=== PATIENT | female | born 2000 | race Caucasian/White ===

== ENCOUNTER 2023-01-11 11:02 | Outpatient (REF) | payer OTHER, SELFPAY ==
[2023-01-11 11:24] LABS: MANUAL DIFF FLAG NO
[2023-01-11 11:55] LABS: Appearance Urine Clear; Color Urine Yellow; Glucose Urine UA Negative (Negative); Leukocyte Esterase Urine Trace (Negative); Nitrite Urine Negative (Negative); PH 6.5 (5.0-9.0); UMIC TRIGGER UACC YES; Urine Blood Negative (Negative); Urine Ketones Negative (Negative); Urine Protein Negative (Neg-Trace)
[2023-01-11 11:55] LABS: Basophils Absolute Auto 0.1 X10*3/uL (0.0-0.2); Basophils Percent Auto 0.7 % (0-2); Eosinophils Absolute Auto 0.4 X10*3/uL (0.0-0.4); Eosinophils Percent Auto 4.5 % (0-4); Hematocrit 38.6 % (37.0-47.0); Hemoglobin 12.4 g/dl (12.0-16.0); Imm Gran Abs Auto 0.08 X10*3/uL (0.00-0.03); Imm Gran Pct Auto 0.9 % (0.0-0.4); Lymphocytes Absolute Auto 2.8 X10*3/uL (1.2-4.9); Lymphocytes Percent Auto 32.4 % (20-40); Mean Corpuscular HGB Conc 32.1 g/dl (31.0-35.0); Mean Corpuscular Hemoglobin 26.7 pg (27.0-33.0); Mean Platelet Volume 11.1 fL (9.4-12.3); Monocytes Absolute Auto 0.5 X10*3/uL (0.1-1.2); Monocytes Percent Auto 5.4 % (2-11); Neutrophils Absolute Auto 4.9 x10*3/uL (2.0-8.3); Neutrophils Percent Auto 56.1 % (45-73); Platelet Count 357 X10*3/uL (160-400); Red Blood Count 4.65 X10*6/uL (4.20-5.50); Red Cell Distribution Width 14.5 % (11.0-16.0); White Blood Count 8.7 X10*3/uL (4.8-10.8)
[2023-01-11 12:10] LABS: Alanine Aminotransferase 72 U/L (0-31); Albumin Level 4.1 g/dL (3.5-5.0); Alkaline Phosphatase 113 U/L (39-117); Anion Gap 14 (12-20); Aspartate Amino Transferase 50 U/L (5-31); Bilirubin Total 0.6 mg/dL (0.0-1.0); Blood Urea Nitrogen 7 mg/dL (9-16); Carbon Dioxide 25 mmol/L (22-29); Chloride 106 mmol/L (96-108); Cholesterol 165 mg/dL; Estimated Glomerular Filt Rate > 60; Glucose Fasting 81 mg/dL (60-99); HDL Cholesterol 39 mg/dL; LDL Cholesterol Calculated 97 mg/dl; Potassium 4.3 mmol/L (3.3-5.1); Sodium 141 mmol/L (135-145); Total Protein 7.6 g/dL (6.5-8.0); Triglycerides 147 mg/dL
[2023-01-11 12:13] LABS: Bacteria Urine 2+ (None Seen); Hyaline Casts Urine 0-2 /LPF (0-2); UACC Culture Trigger YES
[2023-01-11 12:31] LABS: TSH reflex Free T4 0.87 uIU/mL (0.32-4.0)
== END 2023-01-11 11:03 | disposition home or self-care (01) ==
LOC: HO.LAB 11:02
PROVIDERS: PCP Hospitalist; Visit Provider Nurse Practitioner Family
DX: F41.9 Anxiety disorder, unspecified (principal); F32.A Depression, unspecified; Z00.00 Encounter for general adult medical examination without abnormal findings
CPT/HCPCS: 36415; 80053; 80061; 81001; 84443; 85025; 87086

== ENCOUNTER 2023-06-04 09:22 | Outpatient (AMB) | payer OTHER, SELFPAY ==
--- NOTE | 2023-06-04 09:36 | AM.OFFVISNUR ---
Intake Intake Visit Reasons: TDAP Intake Note: Patient came in for a TDAP vaccine. Installment Loan Collector Required: No Accompanied by: Friend Allergies No Known Allergies Allergy (Verified 06/04/23 09:38) Do you need a note to return to daycare/school/sports/work: No Immunizations Boostrix Tdap 2.5 Lf unit-8 mcg-5 Lf/0.5 mL intramuscular syringe Performing Provider: Cheryle Nicolas CNP Performing Location: [facility] [place] [facility] Administered by: Kailey Wilder CMA on 06/04/23 09:36 Dose Route Admin Location Dispensed Lot Number Expiration Date NDC Commissioning Engineer 0.5 mL IM Left Deltoid 0.5 mL [id number] 07/11/25 42814-436-00 [facility] VIS Given Date VIS Provided VIS Publication Date 06/04/23 Single Vaccine 21 Eligibility Eligibility Date Funding Source Not [facility] Eligible 06/04/23 Private Coding Assessment & Plan Assessment & Plan Orders: Orders TDaP Immunization Today Z23 - Encounter for immunization
== END 2023-06-04 09:38 | disposition home or self-care (01) ==
PROVIDERS: PCP Hospitalist; Visit Provider Hospitalist
DX: Z23 Encounter for immunization (principal)
CPT/HCPCS: 90471; 90715

== ENCOUNTER 2023-12-10 13:07 | Outpatient (AMB) | payer OTHER, SELFPAY ==
--- NOTE | 2023-12-10 13:14 | MHC.PC.OV ---
Vital Signs 12/10/23 13:15 Height 5 ft 2 in Weight 195 lb BMI 35.7 BP 122/70 Blood Pressure Location Rt brachial Position Sitting Respiration 13 Pulse 98 Pulse Source Pulse Oximeter Temp 97.3 F Temp Source Temporal Artery Scan Pulse Oximetry (%) 99 Oxygen Delivery Method Room Air Intake Visit Reasons: Trans. from VS-Physical Exam Paper Cone Maker Required: No Accompanied by: Self / Same As Patient Allergies No Known Allergies Allergy (Verified 12/10/23 13:26) Medication List - Last Reconciled 12/10/23 by Cheryle Nicolas CNP lorazepam 0.5 mg PO BID PRN sertraline 50 mg PO DAILY sertraline 200 mg PO DAILY Tobacco use date assessed: 12/10/23 Dental Screening Dental Screen Date: 12/10/23 Did you have a dental visit in the last 12 months?: Yes Did you have a dental problem in the last 6 months where you did not have access to dental care?: No Was dental information given to patient?: Patient has dentist HPI HPI Comments History of Present Illness Details 23-year-old female presents for an extended physical exam She has history of anxiety and depression. She has not followed up with her PCP in over a year She is on lorazepam 0.5mg twice daily and sertraline 250mg daily. She admits to taking her medications as prescribed without adverse reactions She reports controlled anxiety and depression on current regimen She notes that she is followed by a psych provider who manages her psychotropic medications. She is seen at least twice a year She reports intermittent sharp pain underneath her left breast for the past 2 years. The pain usually lasts a few seconds. No associated symptoms, including headache, dizziness, difficulty breathing, nausea, heartburn, neck, jaw, or back pain. She experienced similar chest pain that lasted a few seconds while driving to this appointment. She denies acute symptoms at this time. She states that she was evaluated at the urgent care 2 years ago and lab work including D-dimer ruled out cardiac cause; EKG was not done. She does not make healthy dietary choices. However, she walks at least 30 minutes daily She notes that her last pap smear test was in 2021 with [facility]: normal She is up-to-date on the flu vaccine She notes that she has not been sexually active in the past 2 years She does not smoke cigarette. She drinks alcohol occasionally. No recreational drug use [facility] Medical History (Updated 12/10/23 @ 14:00 by Cheryle Nicolas CNP) No family history of mental disorder Headache Depression Anxiety Sinusitis Surgical History (Updated 12/06/22 @ 11:25 by Kailey Wilder GENERATION TECHNICIAN) No pertinent past surgical history Family History (Updated 12/10/23 @ 13:23 by KARINA Verdin) Mother Breast cancer Social History (Updated 12/06/22 @ 11:29 by Kailey Wilder CMA) Household Members: None Both parents involved: Yes Caregiver staying overnight: No Housing: Apartment Are you a primary childcare worker to a significant other at home: No Do you presently have visiting nurse or other home services: No 75 years or older and lives alone: No Alcohol intake: current Alcohol intake frequency: a few times a week Alcohol type: wine and other Patient Tobacco Use Status: Never used Tobacco e-Cigarette/Vaping Use: Never Used service: No Current occupational status: employed 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 1. Little interest or pleasure in doing things: not at all 2. Feeling down, depressed, or hopeless: not at all 3. Trouble falling or staying asleep, or sleeping too much: not at all 4. Feeling tired or having little energy: several days 5. Poor appetite or overeating: nearly every day 6. Feeling bad about yourself - or that you are a failure or have let yourself or your family down: not at all 7. Trouble concentrating on things, such as reading the newspaper or watching television: not at all 8. Moving or speaking so slowly that other people could have noticed. Or the opposite - being so fidgety or restless that you have been moving around a lot more than usual: several days 9. Thoughts that you would be better off or of hurting yourself in some way: not at all Total score: 5 Depression Screening Interpretation: Negative Depression Screening Done: Yes 55211 - PHQ-9 Billing: Yes Source: Developed by Drs. Miguel A Amador, Lucía Ziegler, Serjio Liu and colleagues, with an educational jose j from [employer] Thrive Questionnaire Date Thrive assessed: 12/10/23 I am a: Patient What is your living situation today?: I have a steady place to live Within the past 12 months, did the food you bought not last and you didn't have the money to get more?: Never true Within the past 12 months, did you worry whether your food would run out before you got money to buy more?: Never true Do you have trouble paying for medicines?: No Do you have trouble getting transportation to medical appointments?: No Do you have trouble paying your heating and electricity bill?: No Do you have trouble taking care of your child, family member or friend?: No Do you have trouble with day-to-day activities such as bathing, preparing meals, shopping, managing finances, etc.?: No Are you currently unemployed and looking for a job?: No Are you interested in more education?: Yes Please select the resources that you would like help with: None Currently or been in a relationship where the following occur: no concerns reported THRIVE Score: 0 AUDIT C Alcohol Use Questionnaire (AUDIT-C) 1. How often do you have a drink containing alcohol?: 2-3 times a week 2. How many drinks containing alcohol do you have on a typical day when you are drinking?: 1 or 2 3. How often do you have six or more drinks on one occasion?: Never Total Score: 3 OSMEL-7 AMB Questionnaire OSMEL-7 Date OSMEL - 7 assessed: 12/10/23 Feeling nervous, anxious, or on edge: 1 = Several days Not being able to stop or control worryin = More than half the days Worrying too much about different things: 2 = More than half the days Trouble relaxin = More than half the days Being so restless that it is hard to sit still: 3 = Nearly every day Becoming easily annoyed or irritable: 2 = More than half the days Feeling afraid as if something awful might happen: 2 = More than half the days Total OSMEL-7 score (0-4 normal; 5-9 mild; 10-14 moderate; 15-21 severe): 14 Source: Developed by Drs. Miguel A Amador, Serjio Bennett and colleagues, with an educational jose j from [employer]. OSMEL-7 Assessment Billing OSMEL-7 Assessment Tool: OSMEL-7 Assessment 43647 Review of Systems Const Details: Denies chills, Denies fatigue, Denies fever(s), Denies headache(s) and Denies weakness HEENT Denies change in vision, Denies dizziness, Denies headache(s), Denies hearing loss, Denies nasal congestion, Denies sinus pain, Denies sinus pressure and Denies sore throat Card Denies chest pain, Denies lightheadedness, Denies dyspnea and Denies other (palpitations) Resp Denies cough, Denies dyspnea and Denies wheezing GI Denies abdominal pain, Denies melena, Denies hematochezia, Denies change in bowel habits, Denies dyspepsia and Denies nausea Denies hematuria and Denies dysuria Musc Denies abnormal gait, Denies myalgias, Denies arthralgias, Denies numbness and Denies tingling Skin/Breast Denies rash, Denies unusual bruising and Denies wounds Neuro Denies abnormal gait, Denies dizziness, Denies headache(s), Denies memory loss, Denies numbness, Denies Sensory deficit (Neuro), Denies tingling and Denies weakness Psych Denies anxiety, Denies depression and Denies memory loss Endo Denies cold intolerance, Denies fatigue, Denies heat intolerance, Denies polydipsia and Denies polyuria Emiliano/Lymph Denies easy bleeding and Denies easy bruising Aller/Immun Denies wheezing Physical exam (Primary Care) Vital Signs: Last Vital Signs Temp 97.3 F 12/10/23 13:15 Pulse 98 12/10/23 13:15 Resp 13 12/10/23 13:15 BP 122/70 12/10/23 13:15 Pulse Ox 99 12/10/23 13:15 Oxygen Delivery Method Room Air 12/10/23 13:15 BMI result Body Mass Index 35.7 Tobacco/Smoking Status: Tobacco use Status Tobacco use date assessed 12/10/23 12/10/23 13:27 Patient Tobacco Use Status Never used Tobacco 12/10/23 13:24 e-Cigarette/Vaping Use Never Used 12/10/23 13:24 PHQ-9: PHQ-9 Score PHQ-9: Total score 5 12/10/23 13:27 Depression Screening Interpretation: Negative Thrive Assessment: Date of Thrive Assessment Date Thrive assessed 12/10/23 12/10/23 13:27 Currently or been in a relationship where the following occur: no concerns reported Const Other: General: no acute distress, well developed, alert and awake Nutritional Appearance: well nourished Orientation/consciousness: patient oriented x3 [facility] Head: Yes normocephalic and Yes atraumatic Ears: hearing grossly normal bilaterally and TM's normal bilaterally General nose exam: Normal external nose present and Normal nares present Mouth: Normal oral and palatal mucosa present and moist mucous membranes Teeth and gingiva: dentition normal Throat: Yes oropharynx normal Eyes Pupils: Equal, round and reactive pupils present and Pupil accommodation reflex normal EOM: EOMs intact bilaterally Neck Neck: Yes normal visual inspection, Yes no lymphadenopathy and Yes trachea midline Thyroid: Thyroid normal Carotids: no bruits Lymphatic: no lymphadenopathy noted Chest Chest palpation & inspection: normal inspection of the chest Resp Effort & Inspection: normal respiratory effort Auscultation: clear to auscultation bilaterally Cardio Rate: regular rate Rhythm: regular rhythm Heart sounds: S1 normal heart sound present, S2 normal heart sound present, no gallops, no murmurs and no rubs Bruits: no abdominal aortic bruits and no carotid bruits GI Palpation (GI): No Abdominal aortic bruit present, Soft to palpation, nontender, No hepatosplenomegaly present and No Rebound tenderness present Auscultation: normal bowel sounds General: Yes no CVA tenderness Back/Spine/Pelvis Back: no CVA tenderness Cervical Spine: cervical ROM normal and No Cervical spine tenderness Thoracic/Lumbar Spine: thoraco-lumbar ROM normal, No pain with thoraco-lumbar ROM, No thoracic spinal tenderness and No lumbar spinal tenderness Skin General: warm and dry. Normal skin color. Normal skin turgor Lesions: no lesions Rashes: no rashes Trauma: no lacerations or abrasions Wounds: no wounds Nails: normal Neuro General: patient oriented x3, gait normal and CN's II-XI intact bilaterally Cranial nerves: Yes Equal, round and reactive pupils present Cognition (Neuro): normal cognition Gait exam (Neuro): Normal gait present Motor exam (neuro): 5/5 motor strength present throughout Sensory Exam: No Sensory deficit (Neuro) Deep tendon reflexes (DTR's): Right patellar reflex intensity grade: 2+ and Left patellar reflex intensity grade: 2+ Extrem General: Yes normal to inspection, No edema and No calf tenderness Psych Appearance: grossly normal Affect: normal affect Attitude: cooperative Thought process: Normal thought process present Office Procedures EKG Details: Normal sinus rhythm Normal intervals Normal axis No hypertrophy No ST/T changes 33467-Kmmxmfhrtqmptwafm, Complete EKG 57785-Vrbpsbksqyxhljreg, Complete Assessment and Plan Assessment & Plan (1) Normal physical examination, routine: Code(s): Z00.00 - Encounter for general adult medical examination without abnormal findings Plan: No significant physical restrictions or limitations noted Continue current treatment regimen Healthy diet and routine exercise encouraged Continue follow-up with Psychiatry as planned Advised to get fasting blood work done and follow-up for telehealth visit in 2-3 weeks for labs review Return with symptoms or concerns Verbalized understanding and agreed with treatment plan (2) Intermittent left-sided chest pain: Code(s): R07.89 - Other chest pain Plan: Reports intermittent sharp left-sided chest pain for the past 2 years. Her symptoms last for few seconds. Denies associated symptoms. She experienced similar symptoms while driving to this appointment today. No acute symptoms at this time Normal physical exam. Lung sounds clear bilaterally. Heart regular rate and rhythm EKG with normal sinus rhythm Her symptoms may be attributed to muscular pain May take Tylenol ibuprofen for pain or discomfort Warm/cool compresses encouraged Follow-up with worsening or new symptoms Verbalized understanding and agreed with treatment plan (3) Anxiety: Code(s): F41.9 - Anxiety disorder, unspecified Plan: Reports controlled anxiety and depression symptoms PHQ-9 and OSMEL-7 scores revealed mild depression and moderate anxiety respectively Continue current treatment regimen Routine exercise encouraged Follow-up with Psychiatry as planned Verbalized understanding and agreed with the plan (4) Depression: Code(s): F32.A - Depression, unspecified Plan: As above (5) Obesity (BMI 30-39.9): Code(s): E66.9 - Obesity, unspecified Plan: She does not make healthy dietary choices She currently weighs 195 lb, BMI is 35.7 Healthy diet and routine exercise encouraged Referred to [facility] [place] (6) Laboratory tests ordered as part of a complete physical exam (CPE): Code(s): Z00.00 - Encounter for general adult medical examination without abnormal findings Plan: Fasting labs ordered as part of a complete physical exam. Advised to fast for at least 10 hours before getting labs drawn. May drink water Verbalized understanding and agreed with treatment plan. Orders: Orders TSH reflex Free T4 Today Z00.00 - Encounter for general adult medical examination without abnormal findings Complete Blood Count Auto Diff Today Z00.00 - Encounter for general adult medical examination without abnormal findings Comprehensive Stephan. Panel Fast Today Z00.00 - Encounter for general adult medical examination without abnormal findings Lipid Panel Today Z00.00 - Encounter for general adult medical examination without abnormal findings AMB EKG-In Office Today R07.89 - Other chest pain Referrals Medical Weight Management Referral E66.9 - Obesity, unspecified Coding Level of Care Code Est Pt Level 4 (32609) Est Pt Prev Care 18-39y(75241) Diagnoses Normal physical examination, routine Z00.00 Intermittent left-sided chest pain R07.89 Anxiety F41.9 Depression F32.A Obesity (BMI 30-39.9) E66.9 Laboratory tests ordered as part of a complete physical exam (CPE) Z00.00 CPT Codes EKG - CPT: 84420-Jaeampcnvibuiqgdz, Complete ([id number]) EKG - CPT: 32571-Nqdeddditgchsdluv, Complete ([id number]) Additional Codes OSMEL-7 Assessment Billing - OSMEL-7 Assessment Tool: OSMEL-7 Assessment 25627 ([id number])
[2023-12-10 13:15] VITALS: BP 122/70; PULSE 98; RESP 13; TEMP 36.3; O2SAT 99; BMI 35.7
== END 2023-12-10 14:08 | disposition home or self-care (01) ==
PROVIDERS: PCP Hospitalist; Visit Provider Nurse Practitioner Family
DX: Z00.00 Encounter for general adult medical examination without abnormal findings (principal); R07.89 Other chest pain; E66.9 Obesity, unspecified; Z68.35 Body mass index [BMI] 35.0-35.9, adult; F41.9 Anxiety disorder, unspecified; F32.A Depression, unspecified
CPT/HCPCS: 93000; 99214; 99395

== ENCOUNTER 2023-12-21 15:39 | Outpatient (REF) | payer OTHER, SELFPAY ==
[2023-12-21 15:48] LABS: MANUAL DIFF FLAG NO
[2023-12-21 16:18] LABS: Basophils Absolute Auto 0.1 X10*3/uL (0.0-0.2); Basophils Percent Auto 0.5 % (0-2); Eosinophils Absolute Auto 0.7 X10*3/uL (0.0-0.4); Eosinophils Percent Auto 5.7 % (0-4); Hematocrit 37.6 % (37.0-47.0); Hemoglobin 12.2 g/dl (12.0-16.0); Imm Gran Pct Auto 0.8 % (0.0-0.4); Lymphocytes Percent Auto 24.8 % (20-40); Mean Corpuscular HGB Conc 32.4 g/dl (31.0-35.0); Mean Corpuscular Hemoglobin 26.8 pg (27.0-33.0); Mean Corpuscular Volume 82.5 fL (80.0-98.0); Mean Platelet Volume 10.6 fL (9.4-12.3); Monocytes Absolute Auto 0.6 X10*3/uL (0.1-1.2); Monocytes Percent Auto 4.8 % (2-11); Neutrophils Absolute Auto 7.7 x10*3/uL (2.0-8.3); Neutrophils Percent Auto 63.4 % (45-73); Platelet Count 331 X10*3/uL (160-400); Red Blood Count 4.56 X10*6/uL (4.20-5.50); Red Cell Distribution Width 15.2 % (11.0-16.0); White Blood Count 12.2 X10*3/uL (4.8-10.8)
[2023-12-21 16:47] LABS: Alanine Aminotransferase 32 U/L (0-31); Albumin Level 4.3 g/dL (3.5-5.0); Alkaline Phosphatase 99 U/L (39-117); Anion Gap 15 (12-20); Aspartate Amino Transferase 26 U/L (5-31); Bilirubin Total 0.3 mg/dL (0.0-1.0); Blood Urea Nitrogen 10 mg/dL (9-16); Calcium 9.5 mg/dL (8.4-10.2); Carbon Dioxide 23 mmol/L (22-29); Chloride 107 mmol/L (96-108); Cholesterol 156 mg/dL (<200); Estimated Glomerular Filt Rate > 60; Glucose Fasting 88 mg/dL (60-99); HDL Cholesterol 38 mg/dL (>40); LDL Cholesterol Calculated 81 mg/dL (<100); Potassium 3.9 mmol/L (3.3-5.1); Sodium 141 mmol/L (135-145); Triglycerides 189 mg/dL (<150)
[2023-12-21 16:56] LABS: TSH reflex Free T4 1.62 uIU/mL (0.32-4.0)
== END 2023-12-21 15:40 | disposition home or self-care (01) ==
LOC: HO.LAB 15:39
PROVIDERS: PCP Nurse Practitioner Family; Visit Provider Nurse Practitioner Family
DX: Z00.00 Encounter for general adult medical examination without abnormal findings (principal)
CPT/HCPCS: 36415; 80053; 80061; 84443; 85025

== ENCOUNTER → 2023-12-25 10:19 | Outpatient (AMB) | payer OTHER, SELFPAY ==
--- NOTE | 2023-12-25 10:17 | A.OFFPC_ITS ---
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 She is followed by Psychiatry for management of anxiety and depression She offers no complaints and denies acute symptoms at this time [facility] Medical History No family history of mental disorder Headache Depression Anxiety Sinusitis Surgical History No pertinent past surgical history Family History (Updated 12/10/23 @ 13:23 by KARINA Verdin) Mother Breast cancer Social History Household Members: None Both parents involved: Yes Caregiver staying overnight: No Housing: Apartment Are you a primary healthcare economics manager to a significant other at home: No Do you presently have visiting nurse or other home services: No 75 years or older and lives alone: No Alcohol intake: current Alcohol intake frequency: a few times a week Alcohol type: wine and other Patient Tobacco Use Status: Never used Tobacco e-Cigarette/Vaping Use: Never Used service: No Current occupational status: employed 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 Miguel A Amador, Lucía Ziegler, Serjio Liu and colleagues, with an educational jose j from [employer]. Review of Systems Const Details: Const Denies chills, Denies fatigue, Denies fever(s), Denies headache(s) and Denies weakness ENT Denies dizziness and Denies headache(s) Card Denies chest pain, Denies lightheadedness, Denies dyspnea and Denies other (Palpitations) Resp Denies cough, Denies dyspnea, Denies wheezing and Denies other ( shortness of breath) GI Denies abdominal pain, Denies melena, Denies hematochezia, Denies change in bowel habits, Denies dyspepsia and Denies nausea Denies hematuria and Denies dysuria Musc Denies abnormal gait, Denies myalgias, Denies arthralgias, Denies numbness and Denies tingling Skin/Breast Denies rash, Denies unusual bruising and Denies wounds Neuro Denies abnormal gait, Denies dizziness, Denies headache(s), Denies memory loss, Denies numbness, Denies Sensory deficit (Neuro), Denies tingling and Denies weakness Psych Denies anxiety, Denies depression, Denies memory loss Endo Denies cold intolerance, Denies fatigue, Denies heat intolerance, Denies polydipsia and Denies polyuria Aller/Immun Denies wheezing Physical exam (Primary Care) Tobacco/Smoking Status: Tobacco use Status Tobacco use date assessed 12/10/23 12/25/23 10:17 Patient Tobacco Use Status Never used Tobacco 12/25/23 10:17 e-Cigarette/Vaping Use Never Used 12/25/23 10:17 Thrive Assessment: Date of Thrive Assessment Date Thrive assessed 12/10/23 12/25/23 10:17 Const Other: Telemedicine visit. No physical exam Telehealth Telehealth Telehealth Platform: Telephone Location of provider rendering services: practice address Location of patient: other Patient Identification confirmed using: Name, : Yes Telehealth method: voice only Patient verbally consented to treatment: Yes Patient verbally consented to billing insurance company: Yes Patient informed of any privacy concerns related to visit: Yes Assessment and Plan Assessment & Plan (1) Dyslipidemia: Code(s): E78.5 - Hyperlipidemia, unspecified Plan: Recent triglycerides level is elevated, 189, HDL is slightly low, 38 Advised to limit foods high in saturated fat and avoid foods high in trans fat Routine exercise encouraged Advised to fast for 10-12 hours, may drink water only, and get blood work done before her next visit Follow-up in 6 months or return sooner with symptoms or concerns Verbalized understanding and agreed with treatment plan (2) Transaminitis: Code(s): R74.01 - Elevation of levels of liver transaminase levels Plan: She has history of elevated ALT and AST levels Recent ALT level is slightly elevated, 32, previous ALT level was 72. AST was previously elevated but now normal No acute symptoms Fatty liver disease is likely. Alcohol may also be a cause given the fact that she drinks 1-2 drinks 2-3 times weekly Healthy diet, routine exercise, and less/no alcohol intake encouraged Will monitor liver enzyme periodically Follow-up with symptoms or concerns Verbalized understanding and agreed with the plan Orders: Orders Lipid Panel 6 Months E78.5 - Hyperlipidemia, unspecified Coding Level of Care Code Tele Est Pt Level 3 (28173) Diagnoses Dyslipidemia E78.5 Transaminitis R74.01 Time Spent (min) 15
== END ==
LOC: HO.HMGFM 10:19
PROVIDERS: PCP Nurse Practitioner Family; Visit Provider Nurse Practitioner Family
DX: E78.5 Hyperlipidemia, unspecified (principal); R74.01 Elevation of levels of liver transaminase levels
CPT/HCPCS: 99442

== ENCOUNTER 2024-03-26 10:47 | Outpatient (REF) | payer OTHER, SELFPAY ==
[2024-03-26 12:54] LABS: Cholesterol 171 mg/dL (<200); HDL Cholesterol 39 mg/dL (>40); LDL Cholesterol Calculated 103 mg/dL (<100); Triglycerides 146 mg/dL (<150)
== END 2024-03-26 10:48 | disposition home or self-care (01) ==
LOC: HO.LAB 10:47
PROVIDERS: Nurse Practitioner Family
DX: E78.5 Hyperlipidemia, unspecified (principal)
CPT/HCPCS: 36415; 80061

== ENCOUNTER 2025-01-05 10:05 | Outpatient (AMB) | payer OTHER, SELFPAY ==
--- NOTE | 2025-01-05 10:13 | A.OFFPC_ITS ---
Vital Signs 01/05/25 10:18 Height 5 ft 2 in Weight 195 lb BMI 35.7 BP 119/76 Blood Pressure Location Rt brachial Position Sitting Respiration 16 Pulse 90 Pulse Source Pulse Oximeter Temp 98.0 F Temp Source Oral Pulse Oximetry (%) 99 Oxygen Delivery Method Room Air Intake Visit Reasons: PE Intake Note: patient here for CPE Medical Field Representative Required: No Is last menstrual period known: Yes Last menstrual period: 01/05/25 Post menopausal: No Patient : No Allergies No Known Allergies Allergy (Verified 01/05/25 10:46) Medication List - Last Reconciled 01/05/25 by Cheryle Nicolas CNP sertraline 50 mg PO DAILY sertraline 200 mg PO DAILY Tobacco use date assessed: 01/05/25 Dental Screening Dental Screen Date: 01/05/25 Did you have a dental visit in the last 12 months?: Yes Did you have a dental problem in the last 6 months where you did not have access to dental care?: No Was dental information given to patient?: Patient has dentist HPI HPI Comments History of Present Illness Details 24-year-old female presents for an exten ded physical exam. She admits to taking her medications as prescribed without adverse reactions. She reports controlled anxiety and depressive symptoms. Acute issue(s) - None Past Medical History - Dyslipidemia, transaminitis, myopia (w ears contacts), obesity, anxiety, depression Social History - Nonsmoker. Does not vape. Drinks 1-2 g lasses of wine/ weekly. Denies recreational drug use - Has been making healthy dietary choice s. Exercises routinely. Generally sleep well Health maintenance - Last eye exam was in 03/2023 with Sabino Patterson, [place]. Record not currently available - Last dental visit was over 10 years ag o; encouraged to schedule an appointment with his dentist for routine dental care - Last Tdap was in 06/04/2023 - She notes that she is up-to-date on flu vaccine - Last pap smear test was in 11/2024 with [facility] payroll lead: normal. Record not currently available Specialists Outpatient Psychiatrist - every 3-4 months [facility] Medical History No family history of mental disorder Headache Depression Anxiety Sinusitis Surgical History No pertinent past surgical history Family History (Updated 12/10/23 @ 13:23 by KARINA Verdin) Mother Breast cancer Social History Household Members: None Both parents involved: Yes Caregiver staying overnight: No Housing: Apartment Are you a primary hearing care practitioner to a significant other at home: No Do you presently have visiting nurse or other home services: No 75 years or older and lives alone: No Alcohol intake: current Alcohol intake frequency: a few times a week Alcohol type: wine and other Patient Tobacco Use Status: Never used Tobacco e-Cigarette/Vaping Use: Never Used Second Hand Smoke Exposure: No service: No Current occupational status: employed 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 1. Little interest or pleasure in doing things: several days 2. Feeling down, depressed, or hopeless: several days 3. Trouble falling or staying asleep, or sleeping too much: several days 4. Feeling tired or having little energy: several days 5. Poor appetite or overeating: several days 6. Feeling bad about yourself - or that you are a failure or have let yourself or your family down: not at all 7. Trouble concentrating on things, such as reading the newspaper or watching television: not at all 8. Moving or speaking so slowly that other people could have noticed. Or the opposite - being so fidgety or restless that you have been moving around a lot more than usual: not at all 9. Thoughts that you would be better off or of hurting yourself in some way: not at all Total score: 5 Depression Screening Interpretation: Positive Depression Screening Follow-up: Existing condition and In treatment Depression Screening Done: Yes 00093 - PHQ-9 Billing: Yes Source: Developed by Drs. Miguel A Amador, Lucía Ziegler, Serjio Liu and colleagues, with an educational jose j from [employer] Thrive Questionnaire Date Thrive assessed: 01/05/25 I am a: Patient What is your living situation today?: I have a steady place to live Within the past 12 months, did the food you bought not last and you didn't have the money to get more?: Never true Within the past 12 months, did you worry whether your food would run out before you got money to buy more?: Never true Do you have trouble paying for medicines?: No Do you have trouble getting transportation to medical appointments?: No Do you have trouble paying your heating and electricity bill?: No Do you have trouble taking care of your child, family member or friend?: No Do you have trouble with day-to-day activities such as bathing, preparing meals, shopping, managing finances, etc.?: No Are you currently unemployed and looking for a job?: No Are you interested in more education?: No Please select the resources that you would like help with: None Currently or been in a relationship where the following occur: No concerns reported THRIVE Score: 0 AUDIT C Alcohol Use Questionnaire (AUDIT-C) 1. How often do you have a drink containing alcohol?: 2-4 times a month 2. How many drinks containing alcohol do you have on a typical day when you are drinking?: 1 or 2 3. How often do you have six or more drinks on one occasion?: Never Total Score: 2 Score Reviewed/Action Taken: Yes OSMEL-7 AMB Questionnaire OSMEL-7 Date OSMEL - 7 assessed: 01/05/25 Feeling nervous, anxious, or on edge: 2 = More than half the days Not being able to stop or control worryin = Nearly every day Worrying too much about different things: 3 = Nearly every day Trouble relaxin = More than half the days Being so restless that it is hard to sit still: 2 = More than half the days Becoming easily annoyed or irritable: 1 = Several days Feeling afraid as if something awful might happen: 2 = More than half the days Total OSMEL-7 score (0-4 normal; 5-9 mild; 10-14 moderate; 15-21 severe): 15 Source: Developed by Drs. Miguel A Amador, Lucía Ziegler, Serjio Liu and colleagues, with an educational jose j from [employer] OSMEL-7 Assessment Billing OSMEL-7 Assessment Tool: OSMEL-7 Assessment 93034 Review of Systems Const Details: Denies chills, Denies fatigue, Denies fever(s), Denies headache(s) and Denies weakness HEENT Denies change in vision, Denies dizziness, Denies headache(s), Denies hearing loss, Denies nasal congestion, Denies sinus pain, Denies sinus pressure and Denies sore throat Card Denies chest pain, Denies lightheadedness, Denies dyspnea and Denies other (palpitations) Resp Denies cough, Denies dyspnea and Denies wheezing GI Denies abdominal pain, Denies melena, Denies hematochezia, Denies change in bowel habits, Denies dyspepsia and Denies nausea Denies hematuria and Denies dysuria Musc Denies abnormal gait, Denies myalgias, Denies arthralgias, Denies numbness and Denies tingling Skin/Breast Denies rash, Denies unusual bruising and Denies wounds Neuro Denies abnormal gait, Denies dizziness, Denies headache(s), Denies memory loss, Denies numbness, Denies Sensory deficit (Neuro), Denies tingling and Denies weakness Psych Denies anxiety, Denies depression and Denies memory loss Endo Denies cold intolerance, Denies fatigue, Denies heat intolerance, Denies polydipsia and Denies polyuria Emiliano/Lymph Denies easy bleeding and Denies easy bruising Aller/Immun Denies wheezing Physical exam (Primary Care) Vital Signs: Last Vital Signs Temp 98.0 F 01/05/25 10:18 Pulse 90 01/05/25 10:18 Resp 16 01/05/25 10:18 BP 119/76 01/05/25 10:18 Pulse Ox 99 01/05/25 10:18 Oxygen Delivery Method Room Air 01/05/25 10:18 BMI result Body Mass Index 35.7 Tobacco/Smoking Status: Tobacco use Status Tobacco use date assessed 01/05/25 01/05/25 10:17 Patient Tobacco Use Status Never used Tobacco 01/05/25 10:15 e-Cigarette/Vaping Use Never Used 01/05/25 10:15 PHQ-9: PHQ-9 Score PHQ-9: Total score 5 01/05/25 10:17 Depression Screening Interpretation: Positive Depression Screening Follow-up: Existing condition and In treatment Thrive Assessment: Date of Thrive Assessment Date Thrive assessed 01/05/25 01/05/25 10:17 Currently or been in a relationship where the following occur: No concerns reported Const Other: General: no acute distress, well developed, alert and awake Nutritional Appearance: well nourished Orientation/consciousness: patient oriented x3 [facility] Head: Yes normocephalic and Yes atraumatic Ears: hearing grossly normal bilaterally and TM's normal bilaterally General nose exam: Normal external nose present and Normal nares present Mouth: Normal oral and palatal mucosa present and moist mucous membranes Teeth and gingiva: dentition normal Throat: Yes oropharynx normal Eyes Pupils: Equal, round and reactive pupils present and Pupil accommodation reflex normal EOM: EOMs intact bilaterally Neck Neck: Yes normal visual inspection, Yes no lymphadenopathy and Yes trachea midline Thyroid: Thyroid normal Carotids: no bruits Lymphatic: no lymphadenopathy noted Chest Chest palpation & inspection: normal inspection of the chest Resp Effort & Inspection: normal respiratory effort Auscultation: clear to auscultation bilaterally Cardio Rate: regular rate Rhythm: regular rhythm Heart sounds: S1 normal heart sound present, S2 normal heart sound present, no gallops, no murmurs and no rubs Bruits: no abdominal aortic bruits and no carotid bruits GI Palpation (GI): No Abdominal aortic bruit present, Soft to palpation, nontender, No hepatosplenomegaly present and No Rebound tenderness present Auscultation: normal bowel sounds General: Yes no CVA tenderness Back/Spine/Pelvis Back: no CVA tenderness Cervical Spine: cervical ROM normal and No Cervical spine tenderness Thoracic/Lumbar Spine: thoraco-lumbar ROM normal, No pain with thoraco-lumbar ROM, No thoracic spinal tenderness and No lumbar spinal tenderness Skin General: warm and dry. Normal skin color. Normal skin turgor Lesions: no lesions Rashes: no rashes Trauma: no lacerations or abrasions Wounds: no wounds Nails: normal Neuro General: patient oriented x3, gait normal and CN's II-XI intact bilaterally Cranial nerves: Yes Equal, round and reactive pupils present Cognition (Neuro): normal cognition Gait exam (Neuro): Normal gait present Motor exam (neuro): 5/5 motor strength present throughout Sensory Exam: No Sensory deficit (Neuro) Deep tendon reflexes (DTR's): Right patellar reflex intensity grade: 2+ and Left patellar reflex intensity grade: 2+ Extrem General: Yes normal to inspection, No edema and No calf tenderness Psych Appearance: grossly normal Affect: normal affect Attitude: cooperative Thought process: Normal thought process present Coding Level of Care Code Est Pt Prev Care 18-39y(05709) Diagnoses Normal physical examination, routine Z00.00 Anxiety F41.9 Depression F32.A Obesity (BMI 30-39.9) E66.9 Laboratory tests ordered as part of a complete physical exam (CPE) Z00.00 Additional Codes OSMEL-7 Assessment Billing - OSMEL-7 Assessment Tool: OSMEL-7 Assessment 44419 ([id number]) PHQ-9 - 97108 - PHQ-9 Billing: Yes ([id number]) Assessment & Plan Assessment & Plan (1) Normal physical examination, routine: Code(s): Z00.00 - Encounter for general adult medical examination without abnormal findin gs Category: Medical Plan: No significant functional limitations noted. Continue current treatment regimen. Follow-up for a telehealth visit in 2-3 weeks for labs review. Return sooner with symptoms or concerns. Verbalized understanding and agreed with the treatment plan. (2) Anxiety: Code(s): F41.9 - Anxiety disorder, unspecified Category: Medical Plan: Reports controlled anxiety and depressive symptoms. PHQ-9 and OSMEL-7 scores revealed mild depression and severe anxiety respectively. Continue current treatment regimen. Routine exercise encouraged. Follow-up with psychiatrist as planned. Verbalized understanding and agreed with treatment plan. (3) Depression: Code(s): F32.A - Depression, unspecified Category: Medical Plan: Plan as above. (4) Obesity (BMI 30-39.9): Code(s): E66.9 - Obesity, unspecified Category: Medical Plan: She currently weighs 195 lb, BMI is 35.7 Declines referral to customs manager/dietitian or weight management clinic and notes that she will continue with healthy lifestyle changes. Healthy diet and routine exercise encouraged. Follow-up as needed. Verbalized understanding and agreed with the plan. (5) Laboratory tests ordered as part of a complete physical exam (CPE): Code(s): Z00.00 - Encounter for general adult medical examination without abnormal findings Category: Medical Plan: Fasting labs ordered as part of a complete physical exam. Advised to fast for at least 10 hours before getting labs drawn. May drink water Verbalized understanding and agreed with treatment plan. Orders: Orders Complete Blood Count Auto Diff Today Z00.00 - Encounter for general adult medical examination without abnormal findings Comprehensive [place]. Panel Fast Today Z00.00 - Encounter for general adult medical examination without abnormal findings Lipid Panel Today Z00.00 - Encounter for general adult medical examination without abnormal findings Microalbumin, Random (w Creat) Today Z00.00 - Encounter for general adult medical examination without abnormal findings TSH reflex Free T4 Today Z00.00 - Encounter for general adult medical examinat ion without abnormal findings UA CC w/rflx Micro + Cult Today Z00.00 - Encounter for general adult medical examination without abnormal findings Vitamin D 25-OH Total Today Z00.00 - Encounter for general adult medical examination without abnormal findings
[2025-01-05 10:18] VITALS: BP 119/76; PULSE 90; RESP 16; TEMP 36.7; O2SAT 99; BMI 35.7
== END 2025-01-05 11:01 | disposition home or self-care (01) ==
LOC: HO.HMCFM 10:09
PROVIDERS: PCP Nurse Practitioner Family; Visit Provider Nurse Practitioner Family
DX: Z00.00 Encounter for general adult medical examination without abnormal findings (principal); F41.9 Anxiety disorder, unspecified; E66.9 Obesity, unspecified; Z68.35 Body mass index [BMI] 35.0-35.9, adult; F32.A Depression, unspecified

== ENCOUNTER → 2025-01-05 10:05 | Outpatient (BNVA) | payer OTHER, SELFPAY | PROVIDERS: PCP Nurse Practitioner Family; Visit Provider Nurse Practitioner Family | DX: Z00.00 Encounter for general adult medical examination without abnormal findings (principal); F41.9 Anxiety disorder, unspecified; F32.A Depression, unspecified; E66.9 Obesity, unspecified; Z68.35 Body mass index [BMI] 35.0-35.9, adult | CPT/HCPCS: 96127 ==

== ENCOUNTER 2025-03-19 13:09 | Outpatient (REF) | payer OTHER, SELFPAY ==
[2025-03-19 13:32] LABS: MANUAL DIFF FLAG NO
--- OUTSIDE RECORDS SUMMARY | 2025-03-19 14:00 | XMS_ITS | Encounter Summary ---
Author Organization [facility] Address [address] [place] [id number] Phone Care Team Providers Care Steamfitter Supervisor Name Role Phone Pcp, Unknown Primary Care Provider Cheryle Dhillon [employer]ER Primary Care Provider [phone] Encounter Details Date Type Department Care Team (Late st Contact Info) Description 03/28/2022 Procedure [facility], Ct Scan - [address] [address] Social History Tobacco Use Types Packs/Day Years Used Date Smoking Tobacco: Never Smokeless Tobacco: Never Alcohol Use Standard Drinks/Week Comments Not Currently 0 (1 standard drink = 0.6 oz pur e alcohol) Comments Unknown Sex and Gender Information Value Date Recorded Sex Assigned at Female 08/15/2021 11:23 AM EST Legal Sex Female 1:16 PM EDT Gender Identity Female 08/15/2021 11:23 AM EST Sexual Orientation Not on file documented as of this encounter Functional Status * Calculated C-SSRS Risk Score (Lifetime/Recent) Answer Date of Assessment Author No Risk Indicated 03/28/2022 11:09 AM EDT Evelina Power, JUANI * [place] Suicide Severity Rating Scale (Screener/Recent Self-Report) Question Answer Date of Assessment Author 1. Wish to be (Past 1 Month) No 022 11:09 AM EDT Evelina Power, RN 2. Non-Specific Active Suici ata Thoughts (Past 1 Month) No 03/28/2022 11:09 AM EDT Mackenzie Power RN 6. Suicidal Behavior (Lifetime) No 11:09 AM EDT TonoEvelina RN documented as of this encounter Plan of Treatment Not on file documented as of this encounter Visit Diagnoses Not on filedocumented in this encounter Additional Health Concerns Infection Onset Date Last Indicated Resolved Time CoV-Risk 08/11/2022 08/11/2022 08/22/2022 1:22 AM EST CoV-Risk 09/18/2023 09/18/2023 09/29/2023 1:22 AM EST Influenza A 09/18/2023 09/18/2023 09/25/2023 1:23 AM EST CoV-Risk 04/01/2024 04/01/2024 04/12/2024 1:22 AM EDT documented as of this encounter Care Teams Steamfitter Supervisor Relationship Specialty Start Date End Date Pcp, Unknown PCP - General 03/28/22 09/17/23 Cheryle Nicolas NP [address] [place] [address] PCP - General Nurse Practitioner 09/18/23 documented as of this encounter Additional Source Comments The information contained in this document represents components of the legal health record. It is not the complete legal health record.[facility]
[2025-03-19 14:05] LABS: Hematocrit 39.0 % (37.0-47.0); Hemoglobin 12.6 g/dl (12.0-16.0); Imm Gran Abs Auto 0.12 X10*3/uL (0.00-0.03); Imm Gran Pct Auto 0.9 % (0.0-0.4); Lymphocytes Absolute Auto 3.2 X10*3/uL (1.2-4.9); Mean Corpuscular HGB Conc 32.3 g/dl (31.0-35.0); Mean Corpuscular Hemoglobin 25.9 pg (27.0-33.0); Mean Corpuscular Volume 80.1 fL (80.0-98.0); NRBC Abs Auto 0.000 X10*3/uL (0.0-0.012); NRBC Pct Auto 0.0 /100WBC (0.0-0.2); Platelet Count 348 X10*3/uL (160-400); Red Blood Count 4.87 X10*6/uL (4.20-5.50); White Blood Count 12.7 X10*3/uL (4.8-10.8)
[2025-03-19 14:13] LABS: Appearance Urine Cloudy; Glucose Urine UA Negative (Negative); PH 5.5 (5.0-9.0); Specific Gravity - Urine 1.025 (1.005-1.025)
[2025-03-19 14:52] LABS: Microalbum/Creatinine Ratio Ur 8.8 ug/mg cr (<30)
[2025-03-19 15:12] LABS: Alanine Aminotransferase 45 U/L (0-31); Albumin Level 4.6 g/dL (3.5-5.0); Alkaline Phosphatase 98 U/L (39-117); Anion Gap 15 (12-20); Aspartate Amino Transferase 41 U/L (5-31); Blood Urea Nitrogen 9 mg/dL (9-16); Calcium 9.1 mg/dL (8.4-10.2); Carbon Dioxide 24 mmol/L (22-29); Chloride 104 mmol/L (96-108); Cholesterol 175 mg/dL (<200); Estimated Glomerular Filt Rate > 60; HDL Cholesterol 40 mg/dL (>40); Potassium 3.8 mmol/L (3.3-5.1); Sodium 139 mmol/L (135-145); Total Protein 7.9 g/dL (6.5-8.0); Triglycerides 172 mg/dL (<150)
== END 2025-03-19 13:10 | disposition home or self-care (01) ==
LOC: HO.LAB 13:09
PROVIDERS: PCP Nurse Practitioner Family; Visit Provider Nurse Practitioner Family
DX: Z00.00 Encounter for general adult medical examination without abnormal findings (principal); Z13.6 Encounter for screening for cardiovascular disorders
CPT/HCPCS: 36415; 80053; 80061; 81003; 82043; 82306; 82570; 84443; 85025

== ENCOUNTER 2025-03-24 15:50 | Outpatient (AMB) | payer OTHER, SELFPAY ==
--- NOTE | 2025-03-24 15:47 | A.OFFPC_ITS ---
Intake Visit Reasons: Telehealth 2-3 wks labs review / Rebook for 02/02 Intake Note: patient here for Telehealth follow up on 2-3 wks for lab review Organ Fixer Required: No Is last menstrual period known: Yes Last menstrual period: 03/07/25 Post menopausal: No Patient : No Allergies No Known Allergies Allergy (Verified 03/24/25 15:48) Tobacco use date assessed: 03/24/25 Dental Screening Dental Screen Date: 03/24/25 Did you have a dental visit in the last 12 months?: Yes Did you have a dental problem in the last 6 months where you did not have access to dental care?: No Was dental information given to patient?: Patient has dentist HPI HPI Comments History of Present Illness Details 24-year-old [facility] of recent lab results. She admits to taking sertraline as prescribed without adverse reactions. She notes that she has been making healthy lifestyle choices. She notes that she is vegan. She offers no complaints and denies acute symptoms at this time. [facility] Medical History No family history of mental disorder Headache Depression Anxiety Sinusitis Surgical History No pertinent past surgical history Family History (Updated 12/10/23 @ 13:23 by KARINA Verdin) Mother Breast cancer Social History Household Members: None Both parents involved: Yes Caregiver staying overnight: No Housing: Apartment Are you a primary primary care nurse practitioner to a significant other at home: No Do you presently have visiting nurse or other home services: No 75 years or older and lives alone: No Alcohol intake: current Alcohol intake frequency: a few times a week Alcohol type: wine and other Patient Tobacco Use Status: Never used Tobacco e-Cigarette/Vaping Use: Never Used Second Hand Smoke Exposure: No Patient : No service: No Current occupational status: employed 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 Cognitive needs: No Hearing needs: No Vision needs: No Female Reproductive History Menstrual Date of last menstrual period: 03/07/25 Questionnaire Thrive Questionnaire Date Thrive assessed: 06/01/25 I am a: Patient What is your living situation today?: I have a steady place to live Within the past 12 months, did the food you bought not last and you didn't have the money to get more?: Never true Within the past 12 months, did you worry whether your food would run out before you got money to buy more?: Never true Do you have trouble paying for medicines?: No Do you have trouble getting transportation to medical appointments?: No Do you have trouble paying your heating and electricity bill?: No Do you have trouble taking care of your child, family member or friend?: No Do you have trouble with day-to-day activities such as bathing, preparing meals, shopping, managing finances, etc.?: No Are you currently unemployed and looking for a job?: No Are you interested in more education?: No Please select the resources that you would like help with: None Currently or been in a relationship where the following occur: No concerns reported THRIVE Score: 0 OSMEL-7 AMB Questionnaire OSMEL-7 Date OSMEL - 7 assessed: 01/05/25 Source: Developed by Drs. Miguel A Amador, Lucía Ziegler, Serjio Liu and colleagues, with an educational jose j from [employer]. Review of Systems Const Details: Denies chills, Denies fatigue, Denies fever(s), Denies headache(s) and Denies weakness Cardiac Denies chest pain, Denies claudication, Denies leg edema, Denies lightheadedness, Denies palpitations, Denies dyspnea, Denies dyspnea on exertion, Denies orthopnea and Denies other (Loss of consciousness) Resp Denies cough, Denies excessive phlegm production, Denies dyspnea, Denies dyspnea on exertion, Denies snoring and Denies wheezing Physical exam (Primary Care) Tobacco/Smoking Status: Tobacco use Status Tobacco use date assessed 03/24/25 03/24/25 15:49 Patient Tobacco Use Status Never used Tobacco 03/24/25 15:49 e-Cigarette/Vaping Use Never Used 03/24/25 15:49 Thrive Assessment: Date of Thrive Assessment Date Thrive assessed 01/04/25 03/24/25 15:49 Currently or been in a relationship where the following occur: No concerns reported Const Other: Patient is alert oriented x3 Telehealth Telehealth Telehealth Platform: Telephone Location of provider rendering services: practice address Location of patient: address on file Patient Identification confirmed using: Name, : Yes Telehealth method: voice only Patient verbally consented to treatment: Yes Patient verbally consented to billing insurance company: Yes Patient informed of any privacy concerns related to visit: Yes Coding Level of Care Code Tele Est Pt Level 3 (52042) Diagnoses Dyslipidemia E78.5 Transaminitis R74.01 Leukocytosis D72.829 Vitamin D deficiency E55.9 Time Spent (min) 15 Assessment & Plan Assessment & Plan (1) Dyslipidemia: Code(s): E78.5 - Hyperlipidemia, unspecified Category: Medical Plan: Recent triglycerides and HDL levels are elevated, 172 and 101 respectively, HDL level is slightly low, 40, Total cholesterol level is normal. Advised to limit foods high in saturated fat and avoid foods high in trans fat. Routine exercise encouraged. Fast for 10-12 hours, may drink water, and perform lipid panel blood work 2-3 days before next visit. Follow-up for telehealth visit in 2 months. Return sooner with symptoms or concerns. Verbalized understanding and agreed with the plan. (2) Transaminitis: Code(s): R74.01 - Elevation of levels of liver transaminase levels Category: Medical Plan: Recent AST and ALT are slightly elevated, 41 and 45 respectively. Healthy diet/weight management encouraged. Will recheck liver panel in 2 months. Verbalized understanding and agreed with the plan. (3) Leukocytosis: Code(s): D72.829 - Elevated white blood cell count, unspecified Category: Medical Plan: Recent WBC is slightly elevated, 12.7. She has had history of elevated WBC. Likely viral or allergic illness. Recent eosinophilia is slightly elevated, 0.5. Will recheck WBC and make changes as needed. Verbalized understanding and agreed with the plan. (4) Vitamin D deficiency: Code(s): E55.9 - Vitamin D deficiency, unspecified Category: Medical Plan: Recent vitamin-D level is low, 17.0. She notes history of vitamin-D deficiency since childhood. She started using vitamin D3 1000 unit today. Continue current treatment regimen. Inform that the sun is a good source of vitamin-D. Will recheck vitamin-D level in 8 weeks. Verbalized understanding and agreed with the plan. Orders: Orders Lipid Panel 2 Months E78.5 - Hyperlipidemia, unspecified Vitamin D 25-OH Total 2 Months E55.9 - Vitamin D deficiency, unspecified Liver Panel 2 Months R74.01 - Elevation of levels of liver transaminase levels WBC ONLY Today D72.829 - Elevated white blood cell count, unspecified
--- OUTSIDE RECORDS SUMMARY | 2025-03-24 17:18 | XMS_ITS | Encounter Summary ---
Author Organization [facility] Address [address] [employer] [facility] [address] [place] [address] Phone Care Team Providers Care Patient Relations Manager Name Role Phone Pcp, Unknown Primary Care Provider Cheryle Dhillon CERTIFIED SURGICAL TECHNICIAN Primary Care Provider [phone]- [phone] Encounter Details Date Type Department Care Team (Late st Contact Info) Description 03/28/2022 Procedure Pass [facility], Ct Scan - [address] [address] Social History Tobacco Use Types Packs/Day Years [...] 11:09 AM EDT Evelina Power, JUANI * [place] Suicide Severity Rating Scale (Screener/Recent Self-Report) Question [...] documented as of this encounter Care Teams Patient Relations Manager Relationship Specialty Start Date End Date Pcp, Unknown PCP - General 03/28/22 09/17/23 Cheryle Nicolas NP [address] [place] [address] PCP - General Nurse Practitioner 09/18/23 documented as of this encounter Additional Source Comments The information contained in this document represents components of the legal health record. It is not the complete legal health record.[facility]
== END 2025-03-24 16:02 | disposition home or self-care (01) ==
LOC: HO.HMCFM 15:50
PROVIDERS: PCP Nurse Practitioner Family; Visit Provider Nurse Practitioner Family
DX: E78.5 Hyperlipidemia, unspecified (principal); R74.01 Elevation of levels of liver transaminase levels; D72.829 Elevated white blood cell count, unspecified; E55.9 Vitamin D deficiency, unspecified

== ENCOUNTER 2025-06-13 08:32 | Outpatient (REF) | payer OTHER, SELFPAY ==
--- OUTSIDE RECORDS SUMMARY | 2025-06-13 08:35 | XMS_ITS | Encounter Summary ---
Author Organization [facility] Address [address] [facility] [address] [place] [address] Phone Care Team Providers Care Director Software Quality Assurance Name Role Phone Pcp, Unknown Primary Care Provider Cheryle Dhillon WET POUR SUPERVISOR Primary Care Provider +1- [phone] Encounter Details Date Type Department Care Team (Late st Contact Info) Description 03/28/2022 Procedure Pass [facility], Ct Scan - [address] [address] Social History Tobacco Use Types Packs/Day Years [...] 11:09 AM EDT Evelina Power, JUANI * [place] Suicide Severity Rating Scale (Screener/Recent Self-Report) Question [...] documented as of this encounter Care Teams Director Software Quality Assurance Relationship Specialty Start Date End Date Pcp, Unknown PCP - General 03/28/22 09/17/23 Cheryle Nicolas NP [address] [place] [address] PCP - General Nurse Practitioner 09/18/23 documented as of this encounter Additional Source Comments The information contained in this document represents components of the legal health record. It is not the complete legal health record.[facility]
--- OUTSIDE RECORDS SUMMARY | 2025-06-13 08:35 | XMS_ITS | Clinical Summary ---
Author Organization [facility] Address [address] [address] [facility] [address] [place] [address] Phone Care Team Providers Care Food Service Tray Attendant Name Role Phone Maria Isabel Cheryle Lim ANALYTICAL SCIENTIST Primary Care Provider [phone]- [phone] Allergies Active Allergy Reactions Criticality Noted Date Comments Pollen Extracts Sneezing 09/18/2023 Medications sertraline (ZOLOFT) 100 MG tablet Take 200 mg by mouth daily. Active buPROPion (WELLBUTRIN) 100 MG immediate release tablet Take 100 mg by mouth 2 (two) times a day. Active LORazepam (ATIVAN) 1 MG tablet Take 1 tablet by mouth 2 (two) times a day. 01/09/2024 Active Active Problems No known active problems Immunizations Immunization Administration Dates Next Due COVID-19 (Pre-05/28) Pfizer Vaccine, mRNA, PF ,11/27/2020 Social History Tobacco Use Types Packs/Day Years Used Date Smoking Tobacco: Never Smokeless Tobacco: Never Tobacco Cessation:Counseling Given: Not Answered Alcohol Use Standard Drinks/Week Comments Not Currently 0 (1 standard drink = 0.6 oz pur e alcohol) Education Answer Date Recorded Are you interested in more education? Not on jori e 12/02/2022 Are you concerned about learning? Not on file 12/02/2022 No 12/02/2022 No 12/02/2022 Digital Access Answer Date Recorded No 12/30/2022 No 12/30/2022 Reliable internet access at home? Not on file 12/30/2022 Device with a working camera? Not on file Intimate Partner Violence Answer Date R ecorded Are you denied basic needs s uch as food, clothing, or medical care? No 08/11/2022 In the past 12 months have y ou been in a relationship with a person who hurts, threatens, or tries to control you? No 08/11/2022 Are you denied basic needs s uch as food, clothing, or medical care? No 08/11/2022 In the past 12 months have y ou been in a relationship with a person who hurts, threatens, or tries to control you? No 08/11/2022 Comments Unknown Sex and Gender Information Value Date Recorded Sex Assigned at Female 08/15/2021 11:23 AM EST Legal Sex Female 1:16 PM EDT Gender Identity Female 08/15/2021 11:23 AM EST Sexual Orientation Not on file Last Filed Vital Signs Vital Sign Reading Time Taken Comments Blood Pressure 113/92 04/01/2024 10:41 AM EDT Pulse 74 04/01/2024 10:41 AM EDT Temperature 37.1 C (98.8 F) 04/01/2024 10:41 AM EDT Respiratory Rate 17 04/01/2024 10:41 AM EDT Oxygen Saturation 98% 04/01/2024 10:41 AM EDT Inhaled Oxygen Concentration - - Weight 90.7 kg (200 lb) 04/01/2024 10:41 AM EDT Height 157.5 cm (5' 2 ) 04/01/2024 10:41 AM EDT Body Mass Index 36.58 04/01/2024 10:41 AM EDT Plan of Treatment Health Maintenance Due Date Last Done Comments DEPRESSION SCREENING 2012 SMOKING Hx and SMOKELESS TOBACCO SCREENING 2013 CHLAMYDIA SCREENING 2016 HEPATITIS C SCREENING 2018 HIV ONE-TIME SCREENING (18-65 YEARS) 2018 PAP SMEAR 2021 INFLUENZA VACCINE (#1) 2025 05/31/2020 COVID-19 VACCINE ( season) 2025 12/18/2020, 11/27/2020 Adult Td,Tdap Booster 04/04/2031 04/04/2021, 011 HIB VACCINES Completed 01/16/2002, 11/04, 2000 PNEUMOCOCCAL VACCINES (0-49 years) Completed 01/16/2002, 02/16/2001, 01/29/2001, Additional history exists HEPATITIS A VACCINES Completed 03/16/2008, 03/21/20 07 HPV VACCINES Completed 12/13/2015, 08/07, 06/18/2015 MENINGOCOCCAL VACCINES (ACWY) Completed 06/29/2017, 05/17/2012 MENINGOCOCCAL VACCINES (B) Aged Out N o longer eligible based on patient's age to complete this topic Medical Devices Not on file Insurance AETNA O POS EPO AETNA O POS EPO AETNA HMO POS EPO [address] [place] [address] AETNA O POS EPO AETNA HMO POS EPO [address] [place] [address] AETNA O POS EPO AETNA HMO POS EPO [address] [place] [address] [place] [address] AETNA HMO POS EPO [employer]IM [employer]ANCE Care Teams Food Service Tray Attendant Relationship Specialty Start Date End Date Cheryle Nicolas NP [address] [place] [address] PCP - General Nurse Practitioner 09/18/23 Additional Source Comments The information contained in this document represents components of the legal health record. It is not the complete legal health record.[facility]
[2025-06-13 11:45] LABS: Alanine Aminotransferase 24 U/L (0-31); Albumin Level 4.3 g/dL (3.5-5.0); Alkaline Phosphatase 99 U/L (39-117); Aspartate Amino Transferase 29 U/L (5-31); Cholesterol 169 mg/dL (<200); HDL Cholesterol 43 mg/dL (>40); Total Protein 7.8 g/dL (6.5-8.0); Triglycerides 112 mg/dL (<150)
== END 2025-06-13 08:33 | disposition home or self-care (01) ==
LOC: HO.LAB 08:32
PROVIDERS: PCP Nurse Practitioner Family; Visit Provider Nurse Practitioner Family
DX: E78.5 Hyperlipidemia, unspecified (principal); E55.9 Vitamin D deficiency, unspecified; R74.01 Elevation of levels of liver transaminase levels
CPT/HCPCS: 36415; 80061; 80076; 82306

== ENCOUNTER 2025-06-16 11:07 | Outpatient (AMB) | payer OTHER, SELFPAY ==
--- NOTE | 2025-06-16 11:04 | MHC.PC.OV ---
Intake Visit Reasons: Resheule dyslipidemia,transaminitis,vitamin-D defi Intake Note: patient here for for Telehealth follow up on dyslipidemia, transaminitis and vit D deficiency Motor Builder Winder Required: No Is last menstrual period known: Yes Last menstrual period: 06/16/25 Post menopausal: No Patient : No Allergies No Known Allergies Allergy (Verified 06/16/25 11:05) Tobacco use date assessed: 06/16/25 Dental Screening Dental Screen Date: 06/16/25 Did you have a dental visit in the last 12 months?: Yes Did you have a dental problem in the last 6 months where you did not have access to dental care?: No Was dental information given to patient?: Patient has dentist HPI HPI Comments History of Present Illness Details 25-year-old female presents for dyslipidemia, transaminitis, and vitamin-D deficiency follow-up. She admits to making healthy lifestyle changes. She started taking vitamin D3 5000 units daily after she ran out of vitamin D3 1000 units. She offers no complaints and denies acute symptoms at this time. [facility] Medical History No family history of mental disorder Headache Depression Anxiety Sinusitis Surgical History No pertinent past surgical history Family History (Updated 12/10/23 @ 13:23 by KARINA Verdin) Mother Breast cancer Social History Household Members: None Both parents involved: Yes Caregiver staying overnight: No Housing: Apartment Are you a primary care management specialist to a significant other at home: No Do you presently have visiting nurse or other home services: No 75 years or older and lives alone: No Alcohol intake: current Alcohol intake frequency: a few times a week Alcohol type: wine and other Patient Tobacco Use Status: Never used Tobacco e-Cigarette/Vaping Use: Never Used Second Hand Smoke Exposure: No Patient : No service: No Current occupational status: employed 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 Cognitive needs: No Hearing needs: No Vision needs: No Female Reproductive History Menstrual Date of last menstrual period: 06/16/25 Questionnaire Thrive Questionnaire Date Thrive assessed: 01/05/25 I am a: Patient What is your living situation today?: I have a steady place to live Within the past 12 months, did the food you bought not last and you didn't have the money to get more?: Never true Within the past 12 months, did you worry whether your food would run out before you got money to buy more?: Never true Do you have trouble paying for medicines?: No Do you have trouble getting transportation to medical appointments?: No Do you have trouble paying your heating and electricity bill?: No Do you have trouble taking care of your child, family member or friend?: No Do you have trouble with day-to-day activities such as bathing, preparing meals, shopping, managing finances, etc.?: No Are you currently unemployed and looking for a job?: No Are you interested in more education?: No Please select the resources that you would like help with: None Currently or been in a relationship where the following occur: No concerns reported THRIVE Score: 0 OSMEL-7 AMB Questionnaire OSMEL-7 Date OSMEL - 7 assessed: 01/05/25 Source: Developed by Drs. Miguel A Amador, Lucía Ziegler, Serjio Liu and colleagues, with an educational jose j from [employer]. Review of Systems Const Details: Denies chills, Denies fatigue, Denies fever(s), Denies headache(s) and Denies weakness Cardiac Denies chest pain, Denies claudication, Denies leg edema, Denies lightheadedness, Denies palpitations, Denies dyspnea, Denies dyspnea on exertion, Denies orthopnea and Denies other (Loss of consciousness) Resp Denies cough, Denies excessive phlegm production, Denies dyspnea, Denies dyspnea on exertion, Denies snoring and Denies wheezing Physical exam (Primary Care) Tobacco/Smoking Status: Tobacco use Status Tobacco use date assessed 06/16/25 06/16/25 11:07 Patient Tobacco Use Status Never used Tobacco 06/16/25 11:07 e-Cigarette/Vaping Use Never Used 06/16/25 11:07 Thrive Assessment: Date of Thrive Assessment Date Thrive assessed 01/05/25 06/16/25 11:07 Currently or been in a relationship where the following occur: No concerns reported Const Other: Patient is a+4 Telehealth Telehealth Telehealth Platform: Telephone Location of provider rendering services: practice address Location of patient: address on file Patient Identification confirmed using: Name, : Yes Telehealth method: voice only Patient verbally consented to treatment: Yes Patient verbally consented to billing insurance company: Yes Patient informed of any privacy concerns related to visit: Yes Coding Level of Care Code Tele Est Pt Level 3 (64876) Diagnoses Dyslipidemia E78.5 Vitamin D deficiency E55.9 Transaminitis R74.01 Leukocytosis D72.829 Time Spent (min) 10 Assessment & Plan Assessment & Plan (1) Dyslipidemia: Code(s): E78.5 - Hyperlipidemia, unspecified Category: Medical Plan: Recent LDL is slightly elevated, 104, triglycerides, total cholesterol, and HDL levels are normal. Advised to limit foods high in saturated fat and avoid foods high in trans fat. Routine exercise encouraged. Will monitor lipid panel level annually or sooner if clinically indicated. Verbalized understanding and agreed with the plan. (2) Vitamin D deficiency: Code(s): E55.9 - Vitamin D deficiency, unspecified Category: Medical Plan: Recent vitamin-D level is low, 21.6, previous level was 17.0. She started taking vitamin D3 5000 units daily after she ran out of vitamin D3 1000 units. Advised to take vitamin D3 2000 units daily. Recheck vitamin-D level a few days before next visit. Follow-up in 2 months. Verbalized understanding and agreed with the plan. (3) Transaminitis: Code(s): R74.01 - Elevation of levels of liver transaminase levels Category: Medical Plan: Recent liver panel is normal. Will monitor liver panel annually or sooner if clinically indicated. Verbalized understanding and agreed with the plan. (4) Leukocytosis: Code(s): D72.829 - Elevated white blood cell count, unspecified Category: Medical Plan: Recent WBC is slightly elevated, 12.7, previous level was 12.2. Equivocal. Will recheck CBC to monitor trend. Follow-up as planned. Verbalized understanding and agreed with the plan. Orders: Orders Complete Blood Count no Diff 2 Months D72.829 - Elevated white blood cell count, unspecified Vitamin D 25-OH Total 2 Months E55.9 - Vitamin D deficiency, unspecified
--- OUTSIDE RECORDS SUMMARY | 2025-06-16 13:16 | XMS_ITS | Clinical Summary ---
Author Organization [facility] Address [address] [employer] [facility] [address] [place] [address] Phone Care Team Providers Care Emblem Drawer In Name Role Phone Maria Isabel Cheryle Lim CUSTOMER EXPERIENCE CONSULTANT Primary Care Provider +1- [phone] Allergies Active Allergy Reactions Criticality Noted Date [...] SMOKING Hx and SMOKELESS TOBACCO SCREENING 2013 HEPATITIS C SCREENING 2018 HIV ONE-TIME SCREENING (18-65 YEARS) 2018 PAP SMEAR 2021 INFLUENZA VACCINE (#1) 2025 05/31/2020 COVID-19 VACCINE ( season) 2025 12/18/2020, 11/27/2020 Adult Td,Tdap Booster 04/04/2031 04/04/2021, 011 HIB VACCINES Completed 01/16/2002, 11/04, 2000 PNEUMOCOCCAL VACCINES (0-49 years) Completed 01/16/2002, 02/16/2001, 01/29/2001, Additional history exists IPV VACCINES Completed 03/06/2006, 10/04, 2000, Additional history exists HEPATITIS A VACCINES Completed 03/16/2008, 03/21/20 07 HPV VACCINES Completed 12/13/2015, 08/07, 06/18/2015 MENINGOCOCCAL VACCINES (ACWY) Completed 06/29/2017, 05/17/2012 MENINGOCOCCAL VACCINES (B) Aged Out N o longer eligible based on patient's age to complete this topic Medical Devices Not on file Insurance AETNA O POS EPO AETNA HMO POS EPO AETNA HMO POS EPO #[address] [place] [address] AETNA HMO POS EPO AETNA HMO POS EPO #[address] [place] [address] AETNA O POS EPO AETNA HMO POS EPO AETNA HMO POS EPO [address] [place] [address] AETNA HMO POS EPO AIM INSURANCE Care Teams Emblem Drawer In Relationship Specialty Start Date End Date Cheryle Nicolas NP [address] [place] [address] PCP - General Nurse Practitioner 09/18/23 Additional Source Comments The information contained in this document represents components of the legal health record. It is not the complete legal health record.[facility]
--- OUTSIDE RECORDS SUMMARY | 2025-06-16 13:16 | XMS_ITS | Encounter Summary ---
Author Organization [facility] Address [address] [facility] [address] [place] [address] Phone Care Team Providers Care Web Architect Name Role Phone Pcp, Unknown Primary Care Provider Cheryle Dhillon SKILL LABOR Primary Care Provider +1- [phone] Encounter Details Date Type Department Care Team (Late st Contact Info) Description 03/28/2022 Procedure Pass [facility], Ct Scan - [address] [address] Social History Tobacco Use Types Packs/Day Years [...] 11:09 AM EDT Evelina Power, JUANI * [place] Suicide Severity Rating Scale (Screener/Recent Self-Report) Question [...] documented as of this encounter Care Teams Web Architect Relationship Specialty Start Date End Date Pcp, Unknown PCP - General 03/28/22 09/17/23 Cheryle Nicolas NP [address] [place] [address] PCP - General Nurse Practitioner 09/18/23 documented as of this encounter Additional Source Comments The information contained in this document represents components of the legal health record. It is not the complete legal health record.[facility]
== END 2025-06-16 13:25 | disposition home or self-care (01) ==
LOC: HO.HMCFM 11:07
PROVIDERS: PCP Nurse Practitioner Family; Visit Provider Nurse Practitioner Family
DX: E78.5 Hyperlipidemia, unspecified (principal); E55.9 Vitamin D deficiency, unspecified; R74.01 Elevation of levels of liver transaminase levels; D72.829 Elevated white blood cell count, unspecified